=== PATIENT | female | born 1960 | race Caucasian/White ===

== ENCOUNTER 2025-01-02 19:25 | Emergency (ER) | payer BC ==
[~2025-01-02] VITALS: Ht 160 cm; Wt 81.8 kg
[2025-01-02 19:27] VITALS: TEMP 98.1
[2025-01-02 21:18] LABS: BASO # 0.1 10^3/uL (0.0-0.2); BASO % 0.9 % (0.0-1.0); EOS # 0.1 10^3/uL (0.0-0.5); EOS % 1.5 % (0.0-3.0); LYMPH # 2.2 10^3/uL (1.5-5.0); LYMPH % 39.1 % (24.0-44.0); MONO # 0.5 10^3/uL (0.0-0.8); MONO % 9.1 % (2.0-8.0); NEUTROPHILS # 2.7 10^3/uL (1.5-8.5); NEUTROPHILS % 49.2 % (36.0-66.0); PLATELET COUNT, AUTOMATED 292 10^3/uL (150-450)
[2025-01-02] MEDS ORDERED: ISOVUE-370 76% 100 ML VIAL As Ordered ONE (21:27)
[2025-01-02 21:42] LABS: INR 0.95
[2025-01-02 21:45] LABS: CK-MB VALUE MASS 1.0 NG/ML (<3.6)
[2025-01-02 21:47] LABS: CPK CREATINE PHOSPHOKINASE 70.0 U/L (34-145); MB/CK RELATIVE INDEX 1.42 (< OR =4)
[2025-01-02 22:51] LABS: CK-MB VALUE MASS < 1.0 NG/ML (<3.6)
[2025-01-02 22:52] LABS: CPK CREATINE PHOSPHOKINASE 68 U/L (34-145)
[2025-01-02] MEDS: ACETAMINOPHEN *IV* 1,000 MG in IV 1 EA IV ONE (23:15)
[2025-01-03] MEDS ORDERED: NAPR-837 PO (00:06)
[2025-01-03] MEDS ORDERED: METH-1165 PO (00:06)
[2025-01-03 00:07] VITALS: BP 112/75; O2SAT 100
[2025-01-03] MEDS: KETOROLAC 30 MG/ML 1 ML VIAL IV ONE (00:11)
== END 2025-01-03 00:16 | disposition home or self-care (01) ==
LOC: M ED 19:25
DX: S23.3XXA Sprain of ligaments of thoracic spine, initial encounter (principal); R53.1 Weakness; X58.XXXA Exposure to other specified factors, initial encounter; Z79.1 Long term (current) use of non-steroidal anti-inflammatories (NSAID); Z79.899 Other long term (current) drug therapy; Z88.5 Allergy status to narcotic agent; Y92.9 Unspecified place or not applicable; Y93.89 Activity, other specified; Y99.9 Unspecified external cause status
CPT/HCPCS: 70450; 71045; 71275; 80047; 82550; 82553; 84484; 85025; 85610; 85730; 93005; 93041; 94760; 96365; 96375; 99284; J0131; J1885; Q9967